=== PATIENT | female | born 1960 | race Caucasian/White ===

== ENCOUNTER 2017-02-18 10:00 | Inpatient (IN) | payer MEDICARE ==
[~2017-02-18] VITALS: Ht 167.6 cm; Wt 56.7 kg
--- NOTE | ~2017-02-18 | DS ---
Unit #: [id number] #: [id number] Patient: JERRELL MATUTE [id number] [facility] [address] [place] [address] [id number] I MR#: [id number] NAME: JERRELL MATUTE ROOM: P258 Age: 56 Sex: F Admission Date: 02/18/2017 : 1960 Discharge Date: 02/24/2017 Attending Physician: Ashu Florian M.D. Primary Care Physician: Primary Care Physician No DISCHARGE SUMMARY REASON FOR ADMISSION The patient is a 56-year-old white female admitted in transfer from [facility] where she had been admitted following a polypharmacy ingestion. HOSPITAL COURSE The patient was admitted to the [address] [place] [address] unit and placed on suicidal precautions. Home medications were continued and the patient was begun on Trileptal 150 mg twice daily for mood stabilization as she had requested discontinuation of Lamictal which she felt was causing her to experience symptoms of rosacea. The patient's stay in the hospital was otherwise an uneventful one. She participated actively within the therapeutic milieu and reported no suicidal ideation. She expressed appropriate contrition of events leading to hospitalization and was in agreement with a plan for family to control her medications more closely. This safety plan was discussed with family members at a family session held on 02/23/2017. By 02/24 the patient appeared to be at her psychiatric baseline and discharge was ordered. FINAL DIAGNOSES Bipolar disorder most recent episode depressed, hypertension. DISPOSITION ON DISCHARGE The patient is discharged on the following medications: Inderal LA 60 mg once daily for hypertension, Neurontin 300 mg at bedtime for insomnia, BuSpar 20 mg three times daily for anxiety, Zanaflex 2 mg q.6 hours for muscle relaxation, Trilafon 16 mg at bedtime for mood stabilization, Klonopin 0.5 mg four times daily for anxiety, Trileptal 150 mg twice daily for mood stabilization, clonidine 0.1 mg q.12 hours p.r.n. hypertension. No dietary or physical restrictions were placed on the patient at time of discharge. Followup will take place through the auspices of [facility]. As noted previously a safety plan has been discussed with the patient and family has been apprised of means to control the patient's medications to prevent another event such as the one which lead to hospitalization. The patient's prognosis is fair. Dictated by... Ahsu Florian M.D. CB/hayley Unit #: [id number] #: [id number] Patient: JERRELL MATUTE TD: 02/25/2017 02:12 JOB #: [id number] DISCHARGE SUMMARY Page 1 of 1 X Ashu Florian MD X DISCHARGE SUMMARY
--- NOTE | ~2017-02-18 | PN ---
Unit #: [id number] #: [id number] Patient: JERRELL MATUTE [id number] [facility] [address] [place] [address] [id number] I MR#: [id number] NAME: JERRELL MATUTE ROOM: [facility]6 Age: 56 Sex: F Admission Date: 02/18/2017 : 1960 Attending Physician: Ashu Florian M.D. Admitting Physician: Ashu Florian M.D. Primary Care Physician: Primary Care Physician Gem THORNE PROGRESS NOTES DATE 02/23/2017 DISCUSSION The patient is abed, resting comfortably today. Later today, a family session will be held in which the patient's safety plan will be discussed with family members in anticipation of possible a.m. discharge. Dictated by... Ashu Florian M.D. CB/milly TD: 02/23/2017 13:39 JOB #: [id number] [facility]I PROGRESS NOTES Page 1 of 1 X Ashu Florian MD X PROGRESS NOTE
--- NOTE | ~2017-02-18 | PN ---
Unit #: [id number] #: [id number] Patient: JERRELL MATUTE [id number] [facility] [address] [place] [address] [id number] I MR#: [id number] NAME: JERRELL MATUTE ROOM: P256 Age: 56 Sex: F Admission Date: 02/18/2017 : 1960 Attending Physician: Ashu Florian M.D. Admitting Physician: Ashu Florian M.D. Primary Care Physician: Primary Care Physician Gem SERNA NOTES DATE 02/21/2017 DISCUSSION The patient is brighter today and continues to deny suicidal ideation. Again, family is expressing grave concerns regarding this patient's safety home and steps that they will need to take to assure her safety. To this end, I have ordered the family therapy session to take place. The patient is complaining of infiltrated IV site and shows significant bruising and swelling of her left hand. I will ask for medical consult to address this issue. She has tolerated initiation of Trileptal without complaint, and should she sustain progress discharge should take place as early as pending completion of her family session. Dictated by... Ashu Florian M.D. CB/milly TD: 02/22/2017 13:39 JOB #: [id number] [facility] SERNA NOTES Page 1 of 1 X Ashu Florian MD X PROGRESS NOTE
--- NOTE | ~2017-02-18 | PN ---
Unit #: [id number] #: [id number] Patient: JERRELL MATUTE [id number] [facility] [address] [place] [address] [id number] I MR#: [id number] NAME: JERRELL MATUTE ROOM: [facility]6 Age: 56 Sex: F Admission Date: 02/18/2017 : 1960 Attending Physician: Ashu Florian M.D. Admitting Physician: Ashu Florian M.D. Primary Care Physician: Primary Care Physician Gem THORNE PROGRESS NOTES DATE 02/20/2017 DISCUSSION The patient resting comfortably this morning. Staff report no management issues and states that she has been compliant with medications and haley routine though she has been somewhat seclusive to room. Dictated by... Ashu Florian M.D. CB/hayley TD: 02/21/2017 00:24 JOB #: [id number] [facility] PROGRESS NOTES Page 1 of 1 X Ashu Florian MD X PROGRESS NOTE
--- NOTE | ~2017-02-18 | PA ---
Unit #: [id number] #: [id number] Patient: JERRELL MATUTE [id number] [facility] [address] [place] [address] [id number] MR#: [id number] NAME: JERRELL MATUTE ROOM: P256 Age: 56 Sex: F Admission Date: 02/18/2017 : 1960 Date of Assessment: 02/19/2017 Attending Physician: Ang Kuhn M.D. Admitting Physician: Ang Kuhn M.D. Primary Care Physician: Primary Care Physician No PSYCHIATRIC ASSESSMENT IDENTIFYING INFORMATION The patient is a 56-year-old white female well known to this physician. She is admitted in transfer from [facility] where she had been transferred from [facility] following an ingestion of hydrocodone and acetaminophen which had led to concerns about possible hepatic failure. CHIEF COMPLAINT None given. INFORMANT Patient, reliability is good. HISTORY OF PRESENT ILLNESS The patient is a 56-year-old white female well known to this physician. She has been admitted on multiple occasions to [facility] under the care of this physician and is followed at [facility] by this physician. She is chronically psychiatrically ill but has done reasonably well with a combination of Klonopin, propranolol, Neurontin, Perphenazine, and Lamictal. The patient overdosed on February 08 and was subsequently admitted to [facility]. She was in transfer to the [facility] with concerns about potential hepatic failure. The patient seems to have rallied interestingly in addition to the recent hepatic issues. The patient has renal issues related to long-term use of lithium. She is no longer on that medication course. The patient has been on Lamictal but states that it is causing her to have rosacea and states that she wishes to stop this medication. She reports that she had "a moment of weakness." She reports that she and her are doing well, and she denies any psychotic symptoms when seen today. She denies recent changes in sleep or appetite. PAST PSYCHIATRIC HISTORY As above. PAST MEDICAL HISTORY The patient has a history of chronic renal failure secondary to a long history of lithium use. She also suffers from chronic pain related to osteoarthritis. MEDICATIONS 1. Klonopin. 2. Propranolol. 3. Neurontin. Unit #: [id number] #: [id number] Patient: JERRELL MATUTE 4. Perphenazine. 5. [place]. 6. Lamictal. 7. Zanaflex. 8. BuSpar. 9. Bactrim DS. ALLERGIES Codeine, erythromycin. FAMILY HISTORY Noncontributory. SOCIAL HISTORY The patient lives with her . She is disabled by her psychiatric illness. There is no reported abuse of alcohol, tobacco, or street drugs. MENTAL STATUS EXAMINATION Examination at this time reveals the patient to be a thin white female appearing somewhat older than stated age. She is in no apparent physical distress at the time of examination. She is awake, alert, and oriented in all spheres. Her mood is mildly dysphoric, her affect blunted. Speech is generally well-coherent. There are no gross deficits in memory or cognition noted. Intelligence is judged to be in the average range based on fund of knowledge. The patient is cooperative throughout the interview. She is currently reporting no suicidal or homicidal ideation or psychotic features. Judgment and insight appear to be intact. ASSETS AND LIABILITIES The patient's assets: Motivation for change. Liabilities: Lack of resources. Chronicity and severity of illness. DIAGNOSTIC IMPRESSION 1. Bipolar disorder, depressed phase, most recent episode, depressed. 2. Borderline personality traits. 3. Status post polypharmacy ingestion. 4. Chronic renal failure. 5. Osteoarthritis of the hip. 6. Chronic pain. TREATMENT PLAN The patient remains hospitalized for safety and stabilization. We will go ahead and discontinue Lamictal as per the patient's request. Continuing other medications. We will consider alternative pharmacotherapeutic interventions including possible initiation of Trileptal, Tegretol, or Depakote. We may also consider a switch to a second-generation antipsychotic for mood stabilization. I will ask for family session to take place and anticipate a fairly lengthy stay in the hospital while we attempt to reconfigure the patient's pharmacotherapeutic regimen given her distaste for lamotrigine. ESTIMATED LENGTH OF STAY 10 to 15 days. Dictated by... Unit #: [id number] #: [id number] Patient: JERRELL MATUTE Bethany Metz TD: 02/19/2017 11:46 JOB #: [id number] PSYCHIATRIC ASSESSMENT Page 1 of 1 X Ashu Florian MD PSYCHIATRIC ASSESSMENT
--- NOTE | ~2017-02-18 | PN ---
Unit #: [id number] #: [id number] Patient: JERRELL MATUTE [id number] [facility] [address] [place] [address] [id number] I MR#: [id number] NAME: JERRELL MATUTE ROOM: [facility]6 Age: 56 Sex: F Admission Date: 02/18/2017 : 1960 Attending Physician: Ashu Florian M.D. Admitting Physician: Ashu Florain M.D. Primary Care Physician: Primary Care Physician Gem THORNE PROGRESS NOTES DATE 02/21/2017 DISCUSSION The patient remains dysphoric but seems a bit brighter today, I will go ahead and restart a mood stabilizing medication beginning with a conservative dose of Trileptal 150 mg twice daily. The patient is agreeable with this plan. Dictated by... Ashu Florian M.D. CB/elmira TD: 02/21/2017 13:11 JOB #: [id number] [facility]I PROGRESS NOTES Page 1 of 1 X Ashu Florian MD PROGRESS NOTE
--- NOTE | ~2017-02-18 | CO ---
Unit #: [id number] #: [id number] Patient: FUNMI MATUTE [id number] [place] [address] [id number] I MR#: [id number] NAME: FUNMI MATUTE ROOM: [facility] Age: 56 Sex: F Admission Date: 02/18/2017 : 1960 Attending Physician: Ashu Florian M.D. Primary Care Physician: Primary Care Physician No Consultation Date: 02/22/2017 CONSULTATION REPORT HISTORY OF PRESENT ILLNESS Funmi reports that she was admitted to [facility] for the past 10 days after an attempted suicide. She overdosed and was admitted and observed for potential liver failure for overdose on hydrocodone and acetaminophen. While admitted, she received an IV in her right hand that infiltrated about 5 days ago and since then, she has had some bruising and swelling that is painful. She has good movement of her hand and has no complaints. PHYSICAL EXAMINATION CARDIAC: Regular rate and rhythm. No murmurs, gallops, or rubs. RESPIRATORY: Clear to auscultation bilaterally. MUSCULOSKELETAL: Full range of motion of right hand. 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 ASSESSMENT AND PLAN 1. Infiltrated IV with bruising and edema. We will apply ice packs to hand t.i.d. for 10 minutes. At this time, it is not ideal to start her on any medications for pain due to her recent overdose and renal and potential liver failure. Please notify if symptoms worsen. Dictated by... Too Diaz/janet TD: 02/23/2017 01:16 JOB #: [id number] CONSULTATION REPORT Page 1 of 1 X MILO BOYKIN APRN X CONSULTATION REPORT
--- NOTE | ~2017-02-18 | HP ---
Unit #: [id number] #: [id number] Patient: JERRELL MATUTE [id number] [place] [address] [id number] MR#: [id number] NAME: JERRELL MATUTE ROOM: P256 Age: 56 Sex: F Admission Date: 02/18/2017 : 1960 Attending Physician: Ang Kuhn M.D. Admitting Physician: Ang Kuhn M.D. Primary Care Physician: Primary Care Physician No HISTORY AND PHYSICAL HISTORY OF PRESENT ILLNESS The patient is a 56-year-old female who states she is here because she overdosed intentionally on hydrocodone and that it was a failed suicide attempt on her part. PAST MEDICAL HISTORY Significant for chronic renal failure, depression, psychiatric issues. PAST SURGICAL HISTORY None. SOCIAL HISTORY Possibly for drugs. ALLERGIES None. FAMILY HISTORY Noncontributory. REVIEW OF SYSTEMS CONSTITUTIONAL: No fever or chills. HEENT: Denies any sore throat, ear pain or runny nose. CARDIOVASCULAR: Denies chest pain, irregular heart rhythm or palpitations. CHEST: Denies shortness of breath or cough. No hemoptysis. GASTROINTESTINAL: Denies nausea, vomiting, diarrhea or chronic constipation. ENDOCRINE: Denies history of increased thirst or urination. No recent significant weight loss or gain. GENITOURINARY: Denies dysuria, frequency, or hematuria. SKIN: Denies any rashes. HEMATOLOGIC: Denies history of increased bleeding or bruising. MUSCULOSKELETAL: Denies any hot, swollen joints. No generalized muscle pain. NEUROLOGIC: Denies problems with vision or speech. No frequent, severe headaches. No numbness, tingling or weakness in any extremities. Denies loss of bladder or bowel control. CURRENT MEDICATIONS 1. Klonopin 0.5 mg p.o. 4 times daily. 2. Propranolol ER 160 mg p.o. daily. 3. Neurontin 300 mg p.o. q.h.s. 4. Perphenazine 60 mg p.o. q.h.s. Unit #: [id number] #: [id number] Patient: JERRELL MATUTE 5. [place] 5 mg p.o. q.i.d. 6. Lamictal 150 mg p.o. q.h.s. 7. Zanaflex 2 mg p.o. q. 6 hours p.r.n. 8. BuSpar 20 mg p.o. 3 times daily. 9. Bactrim DS p.o. daily. PHYSICAL EXAMINATION GENERAL: Alert but somewhat lethargic in speech, in no acute distress. VITAL SIGNS: Temperature 99.1, blood pressure 115/86, heart rate 91, respirations 16. HEIGHT: 5 feet 6 inches. WEIGHT: 125 pounds. SKIN: Multiple bruises in bilateral upper and lower extremities. HEENT: Normocephalic. TMs not viewed. Oronasal passages clear. Conjunctivae clear. PERRLA. EOM is intact. NECK: No lymphadenopathy or thyromegaly. HEART: Regular rate and rhythm. No murmur, gallop, or rub. LUNGS: Clear to auscultation bilaterally. ABDOMEN: Soft, nontender without palpable masses or hepatosplenomegaly. : Not assessed. EXTREMITIES: No evidence of cyanosis, clubbing, or edema. Moves all extremities independently without obvious deficit. NEUROLOGICAL: Grossly within normal limits. Cranial Nerves: II: Visual hardin are intact. III, IV AND : Extraocular movements are intact. Pupils are equal, round and reactive to light. V: Facial sensation is grossly normal. VII: Facial movements and expression are normal. VIII: Auditory acuity grossly intact. IX, X: Uvula is midline. Phonation is normal. XI: Patient shrugs shoulders and turns head normally. XII: Tongue protrudes in the midline. Sensory and Motor Function: Sensory and motor sensation is grossly normal. Motor: moves all extremities well. Coordination: Gait is normal. Deep Tendon Reflexes: Intact. IMPRESSION Psychiatric admission. RECOMMENDATIONS PSYCHIATRIC: Per psychiatrist. MEDICAL: No contraindication to participating in facility's activities. MEDICAL PROGNOSIS Good. Dictated by... Too Ackerman TD: 02/19/2017 15:01 JOB #: [id number] Unit #: [id number] #: [id number] Patient: JERRELL MATUTE HISTORY AND PHYSICAL Page 1 of 1 X Rosa Herman APR X HISTORY AND PHYSICAL
--- NOTE | ~2017-02-18 | CO ---
Unit #: [id number] #: [id number] Patient: JERRELL MATUTE [id number] [facility] [address] [place] [address] [id number] MR#: [id number] NAME: JERRELL MATUTE ROOM: [facility] Age: 56 Sex: F Admission Date: 02/18/2017 : 1960 Attending Physician: Ang Kuhn M.D. Primary Care Physician: Primary Care Physician No Consultation Date: 02/19/2017 CONSULTATION REPORT REASON FOR ADMISSION Transferred from hospital after an attempted drug overdose. SUBJECTIVE "I tried killing myself, but didn't succeed. I ended up in the hospital in respiratory failure and liver failure, and I also had bad kidney, and she said it had been going on for about 7 years." OBJECTIVE Vital Signs: Within normal limits. DIAGNOSTIC STUDIES LABORATORY DATA: Reviewed labs from the hospital dated 02/17/2017. GFR at 34, creatinine 1.56. Potassium 3.6, sodium 135. ASSESSMENT Longstanding renal issues per patient. 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 PLAN We will do BNP on 02/20/2017, and the patient will follow up with outside provider upon discharge. Dictated by... Too Ackerman/milly TD: 02/19/2017 15:07 JOB #: [id number] CONSULTATION REPORT Page 1 of 1 X Rosa Herman APR X CONSULTATION REPORT
[2017-02-19 13:40] LABS: ALBUMIN SERUM 2.9 g/dL (3.5-5.0); BILIRUBIN,TOTAL 0.4 mg/dL (0.2-2.0); BUN/CREATININE RATIO 17.64; CALCIUM SERUM 9.2 mg/dL (8.4-10.2); CREATININE SERUM 1.7 mg/dL (0.6-1.4); GLOM FILT RATE Estimated 32.7 mL/min (>60); POTASSIUM 4.1 mmol/L (3.5-5.1); PROTEIN TOTAL SERUM 5.9 g/dL (6.0-8.3)
[2017-02-20 12:20] LABS: BUN/CREATININE RATIO 20.71; CALCIUM SERUM 9.4 mg/dL (8.4-10.2); CREATININE SERUM 1.4 mg/dL (0.6-1.4); GLOM FILT RATE Estimated 41.3 mL/min (>60)
[2017-02-23 10:16] LABS: ALBUMIN SERUM 3.1 g/dL (3.5-5.0); BILIRUBIN,TOTAL 0.7 mg/dL (0.2-2.0); BUN/CREATININE RATIO 21.25; CALCIUM SERUM 9.5 mg/dL (8.4-10.2); CREATININE SERUM 1.6 mg/dL (0.6-1.4); GLOM FILT RATE Estimated 35.2 mL/min (>60); POTASSIUM 4.5 mmol/L (3.5-5.1); PROTEIN TOTAL SERUM 6.1 g/dL (6.0-8.3)
[2017-02-24 10:16] LABS: BUN/CREATININE RATIO 24.28; CALCIUM SERUM 9.8 mg/dL (8.4-10.2); CREATININE SERUM 1.4 mg/dL (0.6-1.4); GLOM FILT RATE Estimated 41.3 mL/min (>60); POTASSIUM 4.4 mmol/L (3.5-5.1)
== END 2017-02-24 16:35 | disposition home or self-care (01) | DRG 885 ==
LOC: P2L 20:04
PROVIDERS: Family Medicine; Psychiatry & Neurology Psychiatry; Specialist
DX: F31.9 Bipolar disorder, unspecified (principal); I10 Essential (primary) hypertension
CPT/HCPCS: 80048; 80053